=== PATIENT | female | born 1960 | race Caucasian/White ===

== ENCOUNTER 2016-12-09 20:44 | Inpatient (IN) ==
[2016-12-09] MEDS ORDERED: 0.9 % Sodium Chloride 1,000 ML IVC ONE (20:47)
[2016-12-09] MEDS ORDERED: Vancomycin 1,500 MG in D5% in Water 250 ML IVPB ONE (20:49)
[2016-12-09] MEDS ORDERED: Clindamycin 600 MG/50 ML 600 MG/50 ML IV.SOLN IVPB ONE (20:49)
[2016-12-09] MEDS ORDERED: *HR* HYDROmorphone (PF) 1 MG/ML SYRINGE IVP ONE (20:50)
[2016-12-09 21:20] LABS: Basophils % 0.3 %; Eosinophils # 0.1 K/mcL (0.0-0.6); Eosinophils % 0.9 %; Hematocrit 35.5 % (35.3-44.9); Immature Granulocytes % 0.7 % (0-4); Lymphocytes # 1.9 K/mcL (0.6-4.6); Lymphocytes % 14.4 %; Mean Corpuscular HGB Conc 33.8 g/dL (31.6-35.5); Mean Corpuscular Hemoglobin 29.9 pg (28.0-33.3); Mean Corpuscular Volume 88.3 fL (83.0-100.0); Mean Platelet Volume 10.3 fL (9.4-12.4); Monocytes # 0.8 K/mcL (0.0-1.3); Monocytes % 5.9 %; Neutrophils # 10.4 K/mcL (1.6-8.9); Platelet Count 325 K/mcL (140-400); Red Blood Count 4.02 M/mcL (3.82-4.97); Red Cell Distribution Width 12.1 % (11.5-14.5); Segmented Neutrophils % 77.8 %
[2016-12-09 21:25] LABS: INR 1.1; Prothrombin Time 12.1 Seconds (9.4-12.1)
[2016-12-09 21:28] LABS: Activated Partial Thrombo Time 32.2 Seconds (26.0-36.0)
[2016-12-09 21:35] LABS: Alanine Aminotransferase 30 Units/L (0-55); Albumin 3.1 g/dL (3.5-5.0); Albumin/Globulin Ratio 0.6 (1.1-2.2); Alkaline Phosphatase 66 Units/L (38-126); Aspartate Amino Transferase 21 Units/L (5-34); BUN/Creatinine Ratio 18 (6-26); Bilirubin,Direct 0.2 mg/dL (0.0-0.5); Bilirubin,Indirect 0.1 mg/dL (0.0-1.2); Bilirubin,Total 0.3 mg/dL (0.2-1.2); Blood Urea Nitrogen 16 mg/dL (7-20); Calcium 9.8 mg/dL (8.6-10.8); Carbon Dioxide 23 mEq/L (19-29); Chloride 100 mEq/L (98-109); Globulin 5.1 g/dL (2.4-3.5); Glucose 195 mg/dL (70-99); Osmolality,Calculated 289 (280-300); Potassium 3.3 mEq/L (3.5-4.5); Sodium 136 mEq/L (136-145); Total Protein 8.2 g/dL (6.0-8.3); eGFR For African Americans > 60 (> 60); eGFR For Non-African Americans > 60 (> 60)
--- NOTE | 2016-12-09 23:31 | Emergency Department Note ---
Disposition Clinical Impression: Cellulitis of gluteal region Disposition: Admitted As Inpatient Referrals: Aiyana Garay MD [Primary Care Provider] - Forms: Work/School Release, ED Satisfaction Letter General Adult HPI - General Chief complaint: ED General Medical Stated complaint: rectal abcess Source: patient, EMS Limitations: no limitations Nursing Notes Reviewed: Yes Vital Signs Reviewed: Yes - History of Present Illness HPI Narrative: 56-year-old female with a history of diabetes who presents with concern for gluteal cleft cellulitis. She was actually seen at a different [place] facility yesterday and was placed on antibiotics. Today her pain is worsened, symptoms worsen, she is concerned about abscess formation. She has had abscess in the past. She admits her blood glucose has been running normal. She is now having severe pain, unable to move because of her guteal cleft pain. Paramedics did report that she was mildly hypotensive on their arrival however this is resolved by her presentation in the emergency department. Pain Scale: 8 - Related Data Home Medications Medication Instructions Recorded Confirmed Aspirin [Lo-Dose Aspirin EC] 81 mg PO DAILY 12/08/16 12/08/16 Canagliflozin [Invokana] 300 mg PO DAILY 12/08/16 12/08/16 Docusate [Colace] 100 mg PO DAILY 12/08/16 12/08/16 Ferrous Sulfate [Iron] 325 mg PO BID 12/08/16 12/08/16 Furosemide [Lasix] 20 mg PO DAILY 12/08/16 12/08/16 Gemfibrozil [Lopid] 600 mg PO BIDWM 12/08/16 12/08/16 Glimepiride [Amaryl] 4 mg PO BID 12/08/16 12/08/16 HydrOXYzine Pamoate [Vistaril] 10 mg PO BID PRN 12/08/16 12/08/16 Levothyroxine [Synthroid] 50 mcg PO 0630 12/08/16 12/08/16 Lisinopril [Zestril] 10 mg PO DAILY 12/08/16 12/08/16 Loratadine [Allergy Relief] 10 mg PO DAILY 12/08/16 12/08/16 Meloxicam 15 mg PO DAILY 12/08/16 12/08/16 Metformin HCl [Fortamet] 1,000 mg PO BID 12/08/16 12/08/16 Metoprolol [Lopressor] 25 mg PO BID 12/08/16 12/08/16 Trazodone HCl 100 mg PO QPM 12/08/16 12/08/16 Previous Rx's Medication Instructions Recorded Ciprofloxacin [Cipro] 500 mg PO BID #20 tablet 12/08/16 Clindamycin HCl 300 mg PO QID #80 capsule 12/08/16 HYDROcodone/Acet 5/325 mg [[place] 1 tab PO Q6H PRN #14 tab 12/08/16 5-325 mg] Polyethylene Glycol 3350 [MiraLAX 1 scoop PO DAILY #510 gm 12/08/16 Powder Bulk 17.9 Oz] Allergies Allergy/AdvReac Type Severity Reaction Status Date / Time Penicillins AdvReac Hives Verified 12/08/16 00:40 sulfamethoxazole AdvReac See Verified 12/08/16 00:40 [From Bactrim] Comments terbinafine [From Lamisil] AdvReac Anaphylaxis Verified 12/08/16 00:40 trimethoprim [From Bactrim] AdvReac See Verified 12/08/16 00:40 Comments All systems ED: reviewed and negative except as stated. Past Medical History - Past Medical History Medical history: Reports: diabetes, GERD, hyperlipidemia, hypertension, thyroid disease, other Surgical history: Reports: cholecystectomy, colostomy (With reversal), herniorrhaphy Psychiatric history: Reports: anxiety - Social History Smoking Status: Never smoker Smokeless Tobacco Status: Yes Alcohol use: Reports: none Drug use: Reports: none Physical Exam Pupils are equal round reactive to light extraocular muscle movements are normal Trachea is midline TMs are clear bilaterally Cardiovascular exam shows regular rate and rhythm Pulmonary exam is without rales rhonchi or wheezing Abdominal examination is without peritonitis, guarding or rebound tenderness exam there is cellulitis of the gluteal cleft with 3 areas of induration in the perianal region. Neurologic exam is without focal neurological deficit Skin is pink, pale, dry Psychiatric exam shows normal affect normal interaction Extremities are well perfused - General Limitations: no limitations General appearance: alert, in no apparent distress Course Vital Signs Temperature 98.6 F 12/09/16 20:45 Pulse Rate 88 12/09/16 20:45 Respiratory Rate 18 12/09/16 20:45 Blood Pressure 121/68 12/09/16 20:45 O2 Sat by Pulse Oximetry 97 12/09/16 20:45 Temperature 98.6 F 12/09/16 20:45 Pulse Rate 90 12/09/16 23:00 Respiratory Rate 16 12/09/16 23:00 Blood Pressure 110/67 12/09/16 23:00 O2 Sat by Pulse Oximetry 99 12/09/16 23:00 Oxygen Delivery Oxygen Delivery Nasal Cannula Medical Decision Making - MDM Narrative Medical decision making narrative: 56-year-old female who has gluteal cellulitis. She has a penicillin allergy. She has mild lactic acidosis. Given that this is the second emergency department visit, she is having worsening pain there is possibility of early abscess formation. I did repeat a CAT scan to rule out abscess and there is no evidence of abscess at this time. I would proceed with admission at this point given failed outpatient antibiotic therapy, lactic acidosis, diabetes, comorbidities which could exacerbate cellulitis. Additionally should this develop into a full abscess that she could require surgical management. Discussed case with hospitalist team. - Lab Data Result diagrams: 12/09/16 21:12 12/09/16 21:12 Lab Results 12/09/16 12/09/16 12/09/16 Range/Units 21:12 21:12 21:12 WBC 13.4 H (4.3-11.1) K/mcL RBC 4.02 (3.82-4.97) M/mcL Hgb 12.0 D (11.5-15.4) g/dL Hct 35.5 (35.3-44.9) % MCV 88.3 (83.0-100.0) fL MCH 29.9 (28.0-33.3) pg MCHC 33.8 (31.6-35.5) g/dL RDW 12.1 (11.5-14.5) % Plt Count 325 (140-400) K/mcL MPV 10.3 (9.4-12.4) fL Immature Gran % 0.7 (0-4) % Seg Neutrophils % 77.8 % Lymphocytes % 14.4 % Monocytes % 5.9 % Eosinophils % 0.9 % Basophils % 0.3 % Neutrophils # 10.4 H (1.6-8.9) K/mcL Lymphocytes # 1.9 (0.6-4.6) K/mcL Monocytes # 0.8 (0.0-1.3) K/mcL Eosinophils # 0.1 (0.0-0.6) K/mcL Basophils # 0.0 (0.0-0.2) K/mcL PT 12.1 (9.4-12.1) Seconds INR 1.1 APTT 32.2 (26.0-36.0) Seconds Sodium 136 (136-145) mEq/L Potassium 3.3 L (3.5-4.5) mEq/L Chloride 100 (98-109) mEq/L Carbon Dioxide 23 (19-29) mEq/L BUN 16 (7-20) mg/dL Creatinine 0.87 (0.57-1.11) mg/dL Est GFR ( Amer) > 60 (> 60) Est GFR (Non-Af Amer) > 60 (> 60) BUN/Creatinine Ratio 18 (6-26) Glucose 195 H (70-99) mg/dL Calculated Osmolality 289 (280-300) Lactic Acid (0.5-2.2) mmol/L Calcium 9.8 (8.6-10.8) mg/dL Total Bilirubin 0.3 (0.2-1.2) mg/dL Direct Bilirubin 0.2 (0.0-0.5) mg/dL Indirect Bilirubin 0.1 (0.0-1.2) mg/dL AST 21 (5-34) Units/L ALT 30 (0-55) Units/L Alkaline Phosphatase 66 (38-126) Units/L Troponin I (0-0.03) ng/mL Serum Total Protein 8.2 (6.0-8.3) g/dL Albumin 3.1 L (3.5-5.0) g/dL Globulin 5.1 H (2.4-3.5) g/dL Albumin/Globulin Ratio 0.6 L (1.1-2.2) 12/09/16 12/09/16 12/09/16 Range/Units 21:12 21:12 22:47 WBC (4.3-11.1) K/mcL RBC (3.82-4.97) M/mcL Hgb (11.5-15.4) g/dL Hct (35.3-44.9) % MCV (83.0-100.0) fL MCH (28.0-33.3) pg MCHC (31.6-35.5) g/dL RDW (11.5-14.5) % Plt Count (140-400) K/mcL MPV (9.4-12.4) fL Immature Gran % (0-4) % Seg Neutrophils % % Lymphocytes % % Monocytes % % Eosinophils % % Basophils % % Neutrophils # (1.6-8.9) K/mcL Lymphocytes # (0.6-4.6) K/mcL Monocytes # (0.0-1.3) K/mcL Eosinophils # (0.0-0.6) K/mcL Basophils # (0.0-0.2) K/mcL PT (9.4-12.1) Seconds INR APTT (26.0-36.0) Seconds Sodium (136-145) mEq/L Potassium (3.5-4.5) mEq/L Chloride (98-109) mEq/L Carbon Dioxide (19-29) mEq/L BUN (7-20) mg/dL Creatinine (0.57-1.11) mg/dL Est GFR ( Amer) (> 60) Est GFR (Non-Af Amer) (> 60) BUN/Creatinine Ratio (6-26) Glucose (70-99) mg/dL Calculated Osmolality (280-300) Lactic Acid 2.6 H 1.4 (0.5-2.2) mmol/L Calcium (8.6-10.8) mg/dL Total Bilirubin (0.2-1.2) mg/dL Direct Bilirubin (0.0-0.5) mg/dL Indirect Bilirubin (0.0-1.2) mg/dL AST (5-34) Units/L ALT (0-55) Units/L Alkaline Phosphatase (38-126) Units/L Troponin I 0.00 (0-0.03) ng/mL Serum Total Protein (6.0-8.3) g/dL Albumin (3.5-5.0) g/dL Globulin (2.4-3.5) g/dL Albumin/Globulin Ratio (1.1-2.2)
[2016-12-09] MEDS ORDERED: *HR* OxyCODONE/APAP 5/325 TABLET PO ONE (23:45)
[2016-12-10 00:27] LABS: Bilirubin,Urine Negative (Negative); Blood,Urine Negative (Negative); Clarity,Urine Clear (Clear); Color,Urine Yellow (Yellow); Glucose,Urine (UA) >=1000 mg/dL (Normal); Ketones,Urine Negative (Negative); Leukocyte Esterase,Urine Negative (Negative); Nitrite,Urine Negative (Negative); Protein,Urine Negative (Neg-Trace); Specific Gravity,Urine > 1.030 (1.010-1.025); Urobilinogen,Urine Normal (Normal)
--- NOTE | 2016-12-10 03:13 | Internal Med History&Physical ---
Date of Encounter: 12/10/16 Time of Encounter: 03:08 Assessment and Plan (1) Cellulitis of gluteal region Current visit: Yes Status: Acute Cellulitis with significant swelling and tenderness in the above-mentioned area. Continue with IV antibiotics. She has multiple allergies to medication. We will continue with vancomycin coverage of gram-positive bacteria. There is no evidence of crepitation, and no evidence of gas in the imaging study performed, no necrosis. However, in light of history of concomitant diabetes, location of infection, initial elevation of lactic acid, transient hypotension, will provide additional antibiotic coverage with Cipro and Flagyl. No evidence of abscess. Monitor Clinically. May Benefit from Drainage. (2) Diabetes Current visit: Yes Status: Acute Patient on treatment with metformin as outpatient. At this point will hold metformin and monitor fingerstick. We will provide coverage with insulin. Qualifiers: Diabetes mellitus type: type 2 Diabetes mellitus complication status: with hyperglycemia Diabetes mellitus intermediate frame tender insulin use: unspecified intermediate frame tender insulin use status Qualified Code(s): E11.65 - Type 2 diabetes mellitus with hyperglycemia Internal Medicine - H&P: HPI Chief complaint: perianal pain Admitted From: Emergency Dept Plans for Post Hospital Care: Home History of present illness: Ms. Gibson is a 56 year old female with past medical history of type 2 diabetes, hypertension, obesity, history of multiple blood clots, chronic pain, hyperlipidemia, multiple allergies to medications. Presented to our emergency department complaining of worsening pain in the perianal area, associated with tenderness. The patient states that 3 days ago she noticed some pain and tenderness in the perianal area, she seek medical attention and was started on antibiotics. Patient went to [facility], she underwent a CT scan and was told that she needed to continue with antibiotics and might even need to pursue a surgical drainage. The patient was on ciprofloxacin and clindamycin. Today her pain is worse, she is complaining of significant tenderness and swelling in the area. She is very concerned about abscess formation. Prior to the emergency department her vital signs were stable. However, according to documentation in the emergency department. On the way from home to the ER she was slightly hypotensive. Initial goal will reveal a terrific count of 13.4, hemoglobin 12, hematocrit 35.5, blood count is 325,000. Sodium 136, potassium 3.3, chloride 100, bicarbonate 23, BUN 16, creatinine 0.87, glucose 195. Patient underwent a CT of the pelvis which did not reveal any evidence of aspiration. CT demonstrated a stable subcutaneous inflammatory changes in the left gluteal fold. The patient was admitted for further management and workup. Past Med Surg Social Fam HX - Past Medical History Medical history: diabetes, GERD, hyperlipidemia, hypertension, thyroid disease, other Psychiatric history: anxiety - Past Surgical History Surgical History: cholecystectomy, colostomy, herniorrhaphy - Social History Smoking Status: Former smoker Smokeless Tobacco Status: No Alcohol use: none Drug use: none Internal Medicine - H&P: Meds Aspirin [Lo-Dose Aspirin EC] 81 mg PO DAILY 12/08/16 [History] Canagliflozin [Invokana] 300 mg PO DAILY 12/08/16 [History] Clindamycin HCl 300 mg PO QID #80 capsule 12/08/16 [Rx] Docusate [Colace] 100 mg PO DAILY 12/08/16 [History] Ferrous Sulfate [Iron] 325 mg PO BID 12/08/16 [History] Furosemide [Lasix] 20 mg PO DAILY 12/08/16 [History] Gemfibrozil [Lopid] 600 mg PO BIDWM 12/08/16 [History] Glimepiride [Amaryl] 4 mg PO BID 12/08/16 [History] HydrOXYzine Pamoate [Vistaril] 10 mg PO BID PRN 12/08/16 [History] Levothyroxine [Synthroid] 50 mcg PO 0630 12/08/16 [History] Lisinopril [Zestril] 10 mg PO DAILY 12/08/16 [History] Loratadine [Allergy Relief] 10 mg PO DAILY 12/08/16 [History] Meloxicam 15 mg PO DAILY 12/08/16 [History] Metformin HCl [Fortamet] 1,000 mg PO BID 12/08/16 [History] Metoprolol [Lopressor] 25 mg PO BID 12/08/16 [History] Trazodone HCl 100 mg PO QPM 12/08/16 [History] Escitalopram [Lexapro] 20 mg PO DAILY 12/10/16 [History] HYDROcodone/Acet 10/325 mg [[place] 10-325 mg] 1 tab PO TID 12/10/16 [History] Allergies Penicillins Adverse Reaction (Verified 12/08/16 00:40) Hives sulfamethoxazole [From Bactrim] Adverse Reaction (Verified 12/08/16 00:40) See Comments terbinafine [From Lamisil] Adverse Reaction (Verified 12/08/16 00:40) Anaphylaxis trimethoprim [From Bactrim] Adverse Reaction (Verified 12/08/16 00:40) See Comments All Systems PM: A 10-system review of systems was performed and is negative for pertinent findings except as documented above in the HPI. - Constitutional Constitutional: as per HPI, no chills, no fever(s), no night sweats - EENT Eyes: as per HPI, no change in vision, no discharge, no pain, no photophobia Ears: as per HPI, no ear discharge, no ear pain, no tinnitus Nose, mouth and throat: as per HPI, no dysphagia, no nasal discharge, no neck pain, no sore throat - Breasts Breasts: as per HPI - Cardiovascular Cardiovascular ROS IM: as per HPI, no chest pain, no diaphoresis, no dyspnea, no lightheadedness, no palpitations, no syncope - Respiratory Respiratory: as per HPI, no cough, no dyspnea, no wheezing, no excessive phlegm production - Gastrointestinal Gastrointestinal: as per HPI, no abdominal pain, no diarrhea, no hematemesis, no hematochezia, no melena, no nausea, no vomiting - Genitourinary Genitourinary: as per HPI, no change in urinary stream, no dysuria, no flank pain, no hematuria Menstruation: as per HPI - Musculoskeletal Musculoskeletal ROS IM: as per HPI, no numbness, no tingling - Integumentary Integumentary IM: as per HPI, no rash, no unusual bruising - Neurological Neurological ROS: as per HPI, no confusion, no convulsions, no focal weakness, no numbness, no tingling, no tremor(s) - Psychiatric Psychiatric: as per HPI - Endocrine Endocrine IM: as per HPI - Hematologic/Lymphatic Hematologic/Lymphatic: as per HPI, no easy bruising - Allergic/Immunologic Allergic/Immunologic: as per HPI - Constitutional Vitals: Temp Pulse Resp BP Pulse Ox 98.8 F 93 16 111/69 94 L 12/10/16 02:51 12/10/16 02:51 12/10/16 02:51 12/10/16 02:51 12/10/16 02:51 General appearance: Present: cooperative, no acute distress, obese - Head Head exam: Present: atraumatic, normocephalic - Eye Eye exam: Present: PERRL, conjuntiva pink, sclera anicteric Pupils: Present: PERRL - Neck Neck exam general surgery: Present: supple, trachea midline. Absent: lymphadenopathy - Respiratory Respiratory exam: Present: CTAB. Absent: accessory muscle use, rales, rhonchi, wheezes - Cardiovascular Cardiovascular exam: Present: RRR, +S1, +S2. Absent: diastolic murmur, gallop, rubs, systolic murmur - GI/Abdominal GI/Abdominal exam: Present: normal bowel sounds, soft, no peritoneal signs. Absent: distended, tenderness - Extremities Exam Extremities exam: Present: warm, radial pulses palpable and symetrical. Absent : calf tenderness, cyanotic, pedal edema - Neurological Exam Neurological exam: Present: CN II-XII intact, oriented X3, no focal deficits. Absent: pronater drift, facial droop, speech deficit - Skin Skin exam: Present: dry Additional comments: cellulitis of the gluteal cleft with 3 areas of induration and tenderness in the perianal region. Internal Med - H&P Results - Labs CBC & Chem 7: 12/09/16 21:12 12/09/16 21:12 Labs: Urine 12/10/16 Range/Units 00:14 Urine Color Yellow (Yellow) Urine Clarity Clear (Clear) Urine pH 6.0 (5.0-8.0) pH Units Ur Specific [place] > 1.030 H (1.010-1.025) Urine Protein Negative (Neg-Trace) mg/dL Urine Glucose (UA) >=1000 H (Normal) mg/dL
[2016-12-10] MEDS ORDERED: D5% in Water 1,000 ML IVC PRN (03:27)
[2016-12-10] MEDS ORDERED: *HR* Dextrose 50 % in Water (Syg) 50 ML SYRINGE IVP PRN (03:27)
[2016-12-10] MEDS ORDERED: Ondansetron 4 MG/2 ML VIAL IVP PRN (03:27)
[2016-12-10] MEDS ORDERED: Naloxone 0.4 MG/ML INJ IVP PRN (03:27)
[2016-12-10] MEDS ORDERED: Dextrose Gel 15 GM PO PRN ×2 (03:27)
[2016-12-10] MEDS ORDERED: Vancomycin 1,500 MG in D5% in Water 250 ML IVPB SCH (04:00)
[2016-12-10] MEDS: *HR* HYDROcodone/Acet 5/325 mg TABLET PO PRN ×4 (04:02→20:42)
[2016-12-10] MEDS: *HR* Heparin 5,000 UNIT/ML VIAL SQ SCH ×2 (06:25→15:49)
[2016-12-10] MEDS: Aspirin Enteric Coated 81 MG Tablet PO SCH (08:26)
[2016-12-10] MEDS: Furosemide 20 MG TABLET PO SCH (08:26)
[2016-12-10] MEDS: MetroNIDAZOLE 500 MG/100 ML 500 MG/100 ML BAG IVPB SCH ×3 (08:26→23:40)
[2016-12-10] MEDS: Insulin LISPRO 300 UNITS/3 ML VIAL SQ SCH ×4 (08:32→20:36)
[2016-12-10] MEDS: Vancomycin 1,500 MG in D5% in Water 250 ML IVPB SCH ×2 (10:57→21:46)
[2016-12-10] MEDS: 0.9 % Sodium Chloride 1,000 ML IVC SCH (13:09)
[2016-12-10] MEDS ORDERED: Lidocaine 1% 20 ML MDV ID ONE (14:09)
[2016-12-10] MEDS ORDERED: *HR* HYDROmorphone (PF) 1 MG/ML SYRINGE IVP STA (14:10)
[2016-12-10] MEDS ORDERED: *HR* HYDROmorphone (PF) 1 MG/ML SYRINGE ONE (14:14)
[2016-12-10] MEDS: Lidocaine 4% CREAM (LMX) 5 GM TP SCH ×2 (15:33→20:42)
--- NOTE | 2016-12-10 16:48 | General Surgery Consult Note ---
<Gareth Oliveira - Last Filed: 12/10/16 16:42> Date of Encounter: 12/10/16 Time of Encounter: 12:00 Assessment and Plan (1) Perianal abscess Current Visit: Yes Status: Acute Pt. with one 5x6cm carley-anal abscess and one 1x2cm carley-anal abscess She has had carley-anal abscesses before. Bedside I&D was performed. Abscesses were purulent. Pt. had immediate pain relief Wound cultures obtained and sent to lab [facility] History of Present Illness Consult date: 12/10/16 Reason for consult: other (carley-anal abscess) Requesting physician: Arti Vincent History of present illness: Mrs. Gibson is a 56 yo F who presented to [facility] ED for rectal pain. She was seen two days prior for the same issue and was given clindamycin and ciproflaxacin. She returned today for worsening pain in the rectal region. There is a large, superficial, 4x5cm red, swollen, edematous lesion in the left carley-anal region. There is also a small [id number] lesion just inferior to the larger one. They are both exquisitely tender. There is no draining from the abscesses. She denies fever, cp, sob, light-headedness, nausea, vomiting, diarrhea, constipation. Past Med Surg Social Fam HX - Past Medical History Medical history: diabetes, GERD, hyperlipidemia, hypertension, thyroid disease, other Psychiatric history: anxiety - Past Surgical History Surgical History: cholecystectomy, colostomy, herniorrhaphy - Social History Smoking Status: Former smoker Smokeless Tobacco Status: No Alcohol use: none Drug use: none Medications and Allergies Aspirin [Lo-Dose Aspirin EC] 81 mg PO DAILY 12/08/16 [History] Canagliflozin [Invokana] 300 mg PO DAILY 12/08/16 [History] Clindamycin HCl 300 mg PO QID #80 capsule 12/08/16 [Rx] Docusate [Colace] 100 mg PO DAILY 12/08/16 [History] Ferrous Sulfate [Iron] 325 mg PO BID 12/08/16 [History] Furosemide [Lasix] 20 mg PO DAILY 12/08/16 [History] Gemfibrozil [Lopid] 600 mg PO BIDWM 12/08/16 [History] Glimepiride [Amaryl] 4 mg PO BID 12/08/16 [History] HydrOXYzine Pamoate [Vistaril] 10 mg PO BID PRN 12/08/16 [History] Levothyroxine [Synthroid] 50 mcg PO DAILY 12/08/16 [History] Lisinopril [Zestril] 10 mg PO DAILY 12/08/16 [History] Loratadine [Allergy Relief] 10 mg PO DAILY 12/08/16 [History] Meloxicam 15 mg PO DAILY 12/08/16 [History] Metformin HCl [Fortamet] 1,000 mg PO BID 12/08/16 [History] Metoprolol [Lopressor] 25 mg PO BID 12/08/16 [History] Trazodone HCl 100 mg PO QPM 12/08/16 [History] Escitalopram [Lexapro] 20 mg PO DAILY 12/10/16 [History] HYDROcodone/Acet 10/325 mg [[place] 10-325 mg] 1 tab PO TID 12/10/16 [History] Allergies Penicillins Adverse Reaction (Verified 12/08/16 00:40) Hives sulfamethoxazole [From Bactrim] Adverse Reaction (Verified 12/08/16 00:40) See Comments terbinafine [From Lamisil] Adverse Reaction (Verified 12/08/16 00:40) Anaphylaxis trimethoprim [From Bactrim] Adverse Reaction (Verified 12/08/16 00:40) See Comments Review of Systems All systems PM: A 10-system review of systems was performed and is negative for pertinent findings except as documented above in the HPI. - Constitutional as per HPI - Cardiovascular as per HPI - Respiratory as per HPI - Integumentary furuncle - Neurological as per HPI General Surgery Exam Initial Vital Signs Temp Pulse Resp BP Pulse Ox 98.6 F 88 18 121/68 97 12/09/16 20:45 12/09/16 20:45 12/09/16 20:45 12/09/16 20:45 12/09/16 20:45 - General physical appearance well developed, well nourished, no distress - Neck trachea midline - Respiratory normal expansion, clear to auscultation - Cardiovascular Cardiovascular exam: Present: RRR - Abdomen Abdomen general surgery: Present: bowel sounds present, soft, non tender - Rectum Rectum: Present: no hemorrhoids. Absent: no masses (carley-anal abscess) - Neurologic Present: CN 2-12 grossly intact - Psychiatric Psychiatric general surgery: Present: A&Ox3 Exam Initial Vital Signs Temp Pulse Resp BP Pulse Ox 98.6 F 88 18 121/68 97 12/09/16 20:45 12/09/16 20:45 12/09/16 20:45 12/09/16 20:45 12/09/16 20:45 Results - Labs 12/09/16 21:12 12/09/16 21:12 Abnormal lab results WBC 13.4 K/mcL (4.3-11.1) H 12/09/16 21:12 Neutrophils # 10.4 K/mcL (1.6-8.9) H 12/09/16 21:12 Potassium 3.3 mEq/L (3.5-4.5) L 12/09/16 21:12 Glucose 195 mg/dL (70-99) H 12/09/16 21:12 POC Glucose 150 (58-89) H 12/10/16 16:06 Albumin 3.1 g/dL (3.5-5.0) L 12/09/16 21:12 Globulin 5.1 g/dL (2.4-3.5) H 12/09/16 21:12 Albumin/Globulin Ratio 0.6 (1.1-2.2) L 12/09/16 21:12 Ur Specific [place] > 1.030 (1.010-1.025) H 12/10/16 00:14 Urine Glucose (UA) >=1000 mg/dL (Normal) H 12/10/16 00:14 All other labs normal. Consult Discharge Plan - Plan Referrals: Aiyana Garay MD [Primary Care Provider] - <Vicente Tolbert - Last Filed: 12/11/16 05:42> Date of Encounter: 12/10/16 Review of Systems All systems PM: A 10-system review of systems was performed and is negative for pertinent findings except as documented above in the HPI. General Surgery Exam Initial Vital Signs Temp Pulse Resp BP Pulse Ox 98.6 F 88 18 121/68 97 12/09/16 20:45 12/09/16 20:45 12/09/16 20:45 12/09/16 20:45 12/09/16 20:45 Exam Initial Vital Signs Temp Pulse Resp BP Pulse Ox 98.6 F 88 18 121/68 97 12/09/16 20:45 12/09/16 20:45 12/09/16 20:45 12/09/16 20:45 12/09/16 20:45 Results - Labs 12/11/16 04:42 12/11/16 04:42 Abnormal lab results RBC 3.68 M/mcL (3.82-4.97) L 12/11/16 04:42 Hgb 11.1 g/dL (11.5-15.4) L 12/11/16 04:42 Hct 32.9 % (35.3-44.9) L 12/11/16 04:42 Potassium 3.2 mEq/L (3.5-4.5) L 12/11/16 04:42 Glucose 119 mg/dL (70-99) H 12/11/16 04:42 POC Glucose 143 (58-89) H 12/10/16 20:05 Hemoglobin A1c 6.5 % (-5.6) H 12/11/16 04:42 Albumin 3.1 g/dL (3.5-5.0) L 12/09/16 21:12 Globulin 5.1 g/dL (2.4-3.5) H 12/09/16 21:12 Albumin/Globulin Ratio 0.6 (1.1-2.2) L 12/09/16 21:12 Ur Specific [place] > 1.030 (1.010-1.025) H 12/10/16 00:14 Urine Glucose (UA) >=1000 mg/dL (Normal) H 12/10/16 00:14 Diabetes panel 12/11/16 12/11/16 Range/Units 04:42 04:42 Sodium 140 (136-145) mEq/L Potassium 3.2 L (3.5-4.5) mEq/L Chloride 106 (98-109) mEq/L Carbon Dioxide 24 (19-29) mEq/L BUN 9 (7-20) mg/dL Creatinine 0.57 (0.57-1.11) mg/dL Glucose 119 H (70-99) mg/dL Hemoglobin A1c 6.5 H ( - 5.6) % Calcium 8.8 (8.6-10.8) mg/dL Calcium panel 12/11/16 Range/Units 04:42 Calcium 8.8 (8.6-10.8) mg/dL Pituitary panel 12/11/16 Range/Units 04:42 Sodium 140 (136-145) mEq/L Potassium 3.2 L (3.5-4.5) mEq/L Chloride 106 (98-109) mEq/L Carbon Dioxide 24 (19-29) mEq/L BUN 9 (7-20) mg/dL Creatinine 0.57 (0.57-1.11) mg/dL Glucose 119 H (70-99) mg/dL Calcium 8.8 (8.6-10.8) mg/dL Adrenal panel 12/11/16 Range/Units 04:42 Sodium 140 (136-145) mEq/L Potassium 3.2 L (3.5-4.5) mEq/L Chloride 106 (98-109) mEq/L Carbon Dioxide 24 (19-29) mEq/L BUN 9 (7-20) mg/dL Creatinine 0.57 (0.57-1.11) mg/dL Glucose 119 H (70-99) mg/dL Calcium 8.8 (8.6-10.8) mg/dL All other labs normal. - Attending Attestation I examined this patient and my medical decision-making was reviewed with the CLAIMS ACCOUNT MANAGER/PA/Advanced Practice Nurse/Resident Physician. I agree with the documented findings, disposition and treatment plan as described except to the extent set forth below. I reviewed the above physical examination and evaluation and agree with the above assessment. Patient has had a several day history of perianal pain and swelling with no drainage. Presented with pain and swelling in the left perianal abscess region to the emergency room and was initially treated with oral antibiotics. Due to failure of treatment she presented once again to the hospital and was admitted. Positive pain to palpation on the left side near the perirenal space from the 12 o'clock position to the 6 o'clock position with some mild erythema. CT scan confirms the physical exam and findings of a perianal abscess. We will perform a bedside incision and drainage procedure shortly.
[2016-12-10] MEDS: Acetaminophen 325 MG TABLET PO PRN (20:41)
[2016-12-10] MEDS: traZODone 50 MG TABLET PO SCH (20:42)
[2016-12-11] MEDS: *HR* HYDROcodone/Acet 5/325 mg TABLET PO PRN ×3 (04:59→20:28)
[2016-12-11] MEDS: *HR* Heparin 5,000 UNIT/ML VIAL SQ SCH ×2 (05:02→17:29)
[2016-12-11 05:19] LABS: Basophils # 0.1 K/mcL (0.0-0.2); Basophils % 0.5 %; Eosinophils # 0.2 K/mcL (0.0-0.6); Eosinophils % 1.7 %; Hematocrit 32.9 % (35.3-44.9); Hemoglobin 11.1 g/dL (11.5-15.4); Immature Granulocytes % 0.5 % (0-4); Lymphocytes # 2.2 K/mcL (0.6-4.6); Mean Corpuscular HGB Conc 33.7 g/dL (31.6-35.5); Mean Corpuscular Hemoglobin 30.2 pg (28.0-33.3); Mean Corpuscular Volume 89.4 fL (83.0-100.0); Mean Platelet Volume 10.5 fL (9.4-12.4); Monocytes # 0.8 K/mcL (0.0-1.3); Monocytes % 7.4 %; Neutrophils # 7.8 K/mcL (1.6-8.9); Platelet Count 293 K/mcL (140-400); Red Blood Count 3.68 M/mcL (3.82-4.97); Red Cell Distribution Width 12.1 % (11.5-14.5); Segmented Neutrophils % 69.9 %
[2016-12-11 05:27] LABS: Hemoglobin A1C 6.5 %
[2016-12-11 05:39] LABS: BUN/Creatinine Ratio 16 (6-26); Blood Urea Nitrogen 9 mg/dL (7-20); Calcium 8.8 mg/dL (8.6-10.8); Carbon Dioxide 24 mEq/L (19-29); Chloride 106 mEq/L (98-109); Glucose 119 mg/dL (70-99); Osmolality,Calculated 290 (280-300); Potassium 3.2 mEq/L (3.5-4.5); Sodium 140 mEq/L (136-145); eGFR For African Americans > 60 (> 60); eGFR For Non-African Americans > 60 (> 60)
--- NOTE | 2016-12-11 05:44 | Event Note ---
Date of Encounter: 12/10/16 Time of Encounter: 13:00 After properly delivering the patient, the patient was placed on the left lateral side decubitus position in the left perianal region was prepped and draped in normal sterile fashion. I was performed and 1% lidocaine with epinephrine was used to anesthetize the epidermal and dermal layer overlying to fluctuant masses consistent with a perianal abscess. An 11 blade scalpel was used to make an incision approximately 2 cm over the larger abscess and 1 cm over the smaller. Prior to making the incision a 19 gauge needle was used to withdraw approximate 5 mL of abscess which was submitted for culture. Palpation of the region allow for expression of exudate and each opening was packed with quarter-inch packing. The area was covered with 4 x 4 gauze.
[2016-12-11] MEDS: 0.9 % Sodium Chloride 1,000 ML IVC SCH ×2 (06:50→16:40)
[2016-12-11] MEDS: Insulin LISPRO 300 UNITS/3 ML VIAL SQ SCH ×4 (07:51→21:20)
[2016-12-11] MEDS: MetroNIDAZOLE 500 MG/100 ML 500 MG/100 ML BAG IVPB SCH ×3 (07:52→23:45)
[2016-12-11] MEDS: Aspirin Enteric Coated 81 MG Tablet PO SCH (07:53)
[2016-12-11] MEDS: Furosemide 20 MG TABLET PO SCH (07:53)
[2016-12-11] MEDS: Lidocaine 4% CREAM (LMX) 5 GM TP SCH ×3 (07:53→20:29)
[2016-12-11] MEDS: Vancomycin 1,500 MG in D5% in Water 250 ML IVPB SCH (09:52)
--- NOTE | 2016-12-11 12:26 | General Surgery Progress Note ---
Date of Encounter: 12/11/16 Time of Encounter: 12:15 - Assessment and Plan (1) Perianal abscess Current Visit: Yes Status: Acute S/P drainage of perirectal abscess 12/10/[address] Tolbert Continue packing daily for at least the next 5-7 days (may need home health as outpatient) IV antibiotics- cipro, flagyl, vanc Supportive care/pain control Will continue to follow and assess progress Will need outpatient follow-up with surgery office at discharge- 7-10 days Subjective Patient reports: feels better, still having pain, pain is less, tolerating a regular diet, flatus, no bowel movement (for the past 4 days), afebrile, other ( Patient reports difficulty with emptying her baldder, states that she has to stand up to void) Objective Vital Signs - Last 8 Hours Temp Pulse Resp BP Pulse Ox 12/11/16 10:05 98.5 F 98 16 106/66 95 Intake and Output 12/10/16 12/11/16 12/11/16 23:59 07:59 15:59 Intake Total 2250 / 2250 800 / 800 500 / 500 Output Total 1999 / 1999 500 / 500 0 / 0 Balance 250 / 250 300 / 300 500 / 500 Intake: IV Fluids 1300 / 1300 800 / 800 500 / 500 0.9 % Sodium Chloride 1, 500 / 500 500 / 500 150 / 150 000 ML @ 100 mls/hr IVC . Q10H [facility] Rx#:[id number] Cipro 400 MG/200 ML 400 200 / 200 200 / 200 mg In 200 ml @ 200 mls/hr IVPB Q12HR [facility] Rx#: [id number] Flagyl 500 MG/100 ML 500 100 / 100 100 / 100 100 / 100 mg In 100 ml @ 100 mls/hr IVPB Q8HR [facility] Rx#: [id number] Vancocin 1,500 MG In 500 / 500 250 / 250 Dextrose 5% 250 ML @ 166. 667 mls/hr IVPB Q12H R[facility] Rx#:[id number] Oral 950 / 950 Output: Urine 1999 / 1999 500 / 500 0 / 0 Other: Meal Dinner Breakfast Percent of Meal Consumed 100% 100% Weight 100.1 kg Blood Glucose* 143 180 199 Patient Weight 12/11/16 23:59 Weight 100.1 kg - General physical appearance well developed, well nourished, no distress - Eyes normal ocular movement - ENT normal mucosa, atraumatic, normocephalic - Neck Neck exam: trachea midline - Respiratory normal expansion, normal respiratory effort, clear to auscultation - Cardiovascular Cardiovascular exam: Present: RRR - Abdomen Abdomen: Present: bowel sounds present, soft, non tender, surgical scars ( muliple healed) Hernia: incarcerated (multiple incisional) - Neurologic CN 2-12 grossly intact - Musculoskeletal normal gait, normal posture - Psychiatric oriented to time, oriented to person, oriented to place, speech is normal, memory intact - Labs 12/11/16 04:42 12/11/16 04:42 Diabetes panel 12/11/16 12/11/16 Range/Units 04:42 04:42 Sodium 140 (136-145) mEq/L Potassium 3.2 L (3.5-4.5) mEq/L Chloride 106 (98-109) mEq/L Carbon Dioxide 24 (19-29) mEq/L BUN 9 (7-20) mg/dL Creatinine 0.57 (0.57-1.11) mg/dL Glucose 119 H (70-99) mg/dL Hemoglobin A1c 6.5 H ( - 5.6) % Calcium 8.8 (8.6-10.8) mg/dL Calcium panel 12/11/16 Range/Units 04:42 Calcium 8.8 (8.6-10.8) mg/dL Pituitary panel 12/11/16 Range/Units 04:42 Sodium 140 (136-145) mEq/L Potassium 3.2 L (3.5-4.5) mEq/L Chloride 106 (98-109) mEq/L Carbon Dioxide 24 (19-29) mEq/L BUN 9 (7-20) mg/dL Creatinine 0.57 (0.57-1.11) mg/dL Glucose 119 H (70-99) mg/dL Calcium 8.8 (8.6-10.8) mg/dL Adrenal panel 12/11/16 Range/Units 04:42 Sodium 140 (136-145) mEq/L Potassium 3.2 L (3.5-4.5) mEq/L Chloride 106 (98-109) mEq/L Carbon Dioxide 24 (19-29) mEq/L BUN 9 (7-20) mg/dL Creatinine 0.57 (0.57-1.11) mg/dL Glucose 119 H (70-99) mg/dL Calcium 8.8 (8.6-10.8) mg/dL Consult Discharge Plan - Plan Referrals: Aiyana Garay MD [Primary Care Provider] - - Attending Attestation I examined this patient and my medical decision-making was reviewed with the CUSTOMER SECURITY CLERK/PA/Advanced Practice Nurse/Resident Physician. I agree with the documented findings, disposition and treatment plan as described except to the extent set forth below.
[2016-12-11] MEDS: traZODone 50 MG TABLET PO SCH (17:29)
--- NOTE | 2016-12-11 17:51 | Internal Med Progress Note ---
Date of Encounter: 12/11/16 Time of Encounter: 17:49 - Assessment and plan (1) Essential hypertension Current Visit: Yes Status: Acute (2) Obesity (BMI 30.0-34.9) Current Visit: Yes Status: Acute (3) Perianal abscess Current Visit: Yes Status: Acute (4) Cellulitis of gluteal region Current Visit: Yes Status: Acute (5) Diabetes Current Visit: Yes Status: Acute Qualifiers: Diabetes mellitus type: type 2 Diabetes mellitus complication status: with hyperglycemia Diabetes mellitus recorder helper seismograph insulin use: unspecified recorder helper seismograph insulin use status Qualified Code(s): E11.65 - Type 2 diabetes mellitus with hyperglycemia - Time Spent With Patient 25 - 35 minutes - Subjective Interval history: Patient seen and examined at bedside. Reports that perianal pain has improved post I&D. Afebrile. Denies any other complaints - Constitutional Vitals: Temp Pulse Resp BP Pulse Ox 97.8 F 92 14 113/67 94 L 12/11/16 15:01 12/11/16 15:01 12/11/16 15:01 12/11/16 15:01 12/11/16 15:01 General appearance: Present: cooperative, no acute distress, obese - Head Head exam: Present: atraumatic, normocephalic - Eye Eye exam: Present: PERRL, conjuntiva pink, sclera anicteric Pupils: Present: PERRL - Neck Neck exam general surgery: Present: supple, trachea midline. Absent: lymphadenopathy - Respiratory Respiratory exam: Present: CTAB. Absent: accessory muscle use, rales, rhonchi, wheezes - Cardiovascular Cardiovascular exam: Present: RRR, +S1, +S2. Absent: diastolic murmur, gallop, rubs, systolic murmur - GI/Abdominal GI/Abdominal exam: Present: normal bowel sounds, soft, no peritoneal signs. Absent: distended, tenderness - Rectal Rectal exam: Present: tenderness (swelling perianal area s/p I&D packed ) - Extremities Exam Extremities exam: Present: warm, radial pulses palpable and symetrical. Absent : calf tenderness, cyanotic, pedal edema - Neurological Exam Neurological exam: Present: CN II-XII intact, oriented X3, no focal deficits. Absent: pronater drift, facial droop, speech deficit - Skin Skin exam: Present: dry, intact Internal Medicine: Result - Labs CBC & Chem 7: 03/27/17 04:42 12/11/16 04:42 Labs: Short CBC 12/11/16 Range/Units 04:42 WBC 11.1 (4.3-11.1) K/mcL Hgb 11.1 L (11.5-15.4) g/dL Hct 32.9 L (35.3-44.9) % Plt Count 293 (140-400) K/mcL Neutrophils # 7.8 (1.6-8.9) K/mcL BMP 12/11/16 04:42 Sodium 140 Potassium 3.2 L Chloride 106 Carbon Dioxide 24 BUN 9 Creatinine 0.57 Glucose 119 H Calcium 8.8 - ABG Interpretation ABG results: PT/INR, D-dimer PT 12.1 Seconds (9.4-12.1) 12/09/16 21:12 Consult Discharge Plan - Plan Referrals: Aiyana Garay MD [Primary Care Provider] -
[2016-12-11] MEDS: Acetaminophen 325 MG TABLET PO PRN (20:28)
[2016-12-11] MEDS: Vancomycin 1,750 MG in D5% in Water 500 ML IVPB SCH (20:34)
[2016-12-12] MEDS: 0.9 % Sodium Chloride 1,000 ML IVC SCH ×2 (04:47→22:05)
[2016-12-12] MEDS: *HR* Heparin 5,000 UNIT/ML VIAL SQ SCH ×2 (04:52→17:20)
[2016-12-12] MEDS: *HR* HYDROcodone/Acet 5/325 mg TABLET PO PRN ×3 (04:52→17:19)
[2016-12-12 05:19] LABS: Basophils # 0.1 K/mcL (0.0-0.2); Basophils % 0.8 %; Eosinophils # 0.2 K/mcL (0.0-0.6); Eosinophils % 1.8 %; Hematocrit 35.2 % (35.3-44.9); Hemoglobin 11.8 g/dL (11.5-15.4); Immature Granulocytes % 0.6 % (0-4); Lymphocytes # 2.3 K/mcL (0.6-4.6); Lymphocytes % 26.2 %; Mean Corpuscular HGB Conc 33.5 g/dL (31.6-35.5); Mean Corpuscular Hemoglobin 29.9 pg (28.0-33.3); Mean Corpuscular Volume 89.1 fL (83.0-100.0); Monocytes # 0.7 K/mcL (0.0-1.3); Monocytes % 7.4 %; Neutrophils # 5.6 K/mcL (1.6-8.9); Platelet Count 300 K/mcL (140-400); Red Blood Count 3.95 M/mcL (3.82-4.97); Red Cell Distribution Width 12.3 % (11.5-14.5); Segmented Neutrophils % 63.2 %
[2016-12-12 05:36] LABS: BUN/Creatinine Ratio 12 (6-26); Blood Urea Nitrogen 7 mg/dL (7-20); Carbon Dioxide 24 mEq/L (19-29); Chloride 106 mEq/L (98-109); Glucose 129 mg/dL (70-99); Osmolality,Calculated 290 (280-300); Potassium 3.5 mEq/L (3.5-4.5); Sodium 140 mEq/L (136-145); eGFR For African Americans > 60 (> 60); eGFR For Non-African Americans > 60 (> 60)
[2016-12-12] MEDS: Aspirin Enteric Coated 81 MG Tablet PO SCH (08:16)
[2016-12-12] MEDS: Furosemide 20 MG TABLET PO SCH (08:16)
[2016-12-12] MEDS: Insulin LISPRO 300 UNITS/3 ML VIAL SQ SCH ×4 (08:18→20:17)
[2016-12-12] MEDS: MetroNIDAZOLE 500 MG/100 ML 500 MG/100 ML BAG IVPB SCH ×2 (08:19→15:44)
[2016-12-12] MEDS: *HR* Morphine 2 MG/ML SYRINGE IVP PRN (08:20)
[2016-12-12] MEDS: Lidocaine 4% CREAM (LMX) 5 GM TP SCH ×3 (08:20→20:22)
[2016-12-12] MEDS: Vancomycin 1,750 MG in D5% in Water 500 ML IVPB SCH ×2 (09:31→22:04)
--- NOTE | 2016-12-12 12:56 | Internal Med Progress Note ---
Date of Encounter: 12/12/16 Time of Encounter: 16:51 - Assessment and plan (1) Essential hypertension Current Visit: Yes Status: Acute (2) Obesity (BMI 30.0-34.9) Current Visit: Yes Status: Acute (3) Perianal abscess Current Visit: Yes Status: Acute (4) Cellulitis of gluteal region Current Visit: Yes Status: Acute (5) Diabetes Current Visit: Yes Status: Acute Assessment and plan: 56 year old female with past medical history of type 2 diabetes, hypertension, obesity, history of multiple blood clots, chronic pain, hyperlipidemia, multiple allergies to medications,a dmitted to hospital with cellulitis of the perianal area. Patient had worsening selling the day following admisison with multiple abscess noted in the perianal area s/p I&D on 12/10. Perianal abscess: s/p drainage on 12/10/2016. On broad spectrum antibiotic coverage with Vancomycin , cipro and flagyl. Surgery following, packing changed today. c/s grew GPC. Will d/c cipro and flagyl if agreeabe with surgery. Multiple abx allergies listed. Diabetes Mellitus Type 2 with complications: On SSI. Monitor BGM Ac and HS. On Metformin, Invokana and Amaryl at home. Essential Hypertension: On lisinopril and metoprolol. Hyperlipidemia: On Gemfibrozil Hypothyroidism: continue synthroid GERD: continue PPI Obesity: To be addressed as outpt. Counseled on diet and exercise Qualifiers: Diabetes mellitus type: type 2 Diabetes mellitus complication status: with hyperglycemia Diabetes mellitus correction insulin use: unspecified ocean transportation intermediary insulin use status Qualified Code(s): E11.65 - Type 2 diabetes mellitus with hyperglycemia - Time Spent With Patient 25 - 35 minutes - Subjective Interval history: Patient seen and examined at bedside. Reports that perianal pain has improved post I&D. Afebrile. Denies any other complaints - Constitutional Vitals: Temp Pulse Resp BP Pulse Ox 97.6 F 65 16 110/64 95 12/12/16 12:00 12/12/16 12:00 12/12/16 12:00 12/12/16 12:00 12/12/16 12:00 General appearance: Present: cooperative, no acute distress, obese - Head Head exam: Present: atraumatic, normocephalic - Eye Eye exam: Present: PERRL, conjuntiva pink, sclera anicteric Pupils: Present: PERRL - Neck Neck exam general surgery: Present: supple, trachea midline. Absent: lymphadenopathy - Respiratory Respiratory exam: Present: CTAB. Absent: accessory muscle use, rales, rhonchi, wheezes - Cardiovascular Cardiovascular exam: Present: RRR, +S1, +S2. Absent: diastolic murmur, gallop, rubs, systolic murmur - GI/Abdominal GI/Abdominal exam: Present: normal bowel sounds, soft, no peritoneal signs. Absent: distended, tenderness - Extremities Exam Extremities exam: Present: warm, radial pulses palpable and symetrical. Absent : calf tenderness, cyanotic, pedal edema - Neurological Exam Neurological exam: Present: CN II-XII intact, oriented X3, no focal deficits. Absent: pronater drift, facial droop, speech deficit - Skin Skin exam: Present: dry, intact Internal Medicine: Result - Labs CBC & Chem 7: 12/12/16 05:09 12/12/16 05:09 Labs: Short CBC 12/12/16 Range/Units 05:09 WBC 8.9 (4.3-11.1) K/mcL Hgb 11.8 (11.5-15.4) g/dL Hct 35.2 L (35.3-44.9) % Plt Count 300 (140-400) K/mcL Neutrophils # 5.6 (1.6-8.9) K/mcL BMP 12/12/16 05:09 Sodium 140 Potassium 3.5 Chloride 106 Carbon Dioxide 24 BUN 7 Creatinine 0.57 Glucose 129 H Calcium 9.0 - ABG Interpretation ABG results: PT/INR, D-dimer PT 12.1 Seconds (9.4-12.1) 12/09/16 21:12 Consult Discharge Plan - Plan Referrals: Aiyana Garay MD [Primary Care Provider] -
--- NOTE | 2016-12-12 14:01 | General Surgery Progress Note ---
Date of Encounter: 12/12/16 Time of Encounter: 13:30 - Assessment and Plan (1) Perianal abscess Current Visit: Yes Status: Acute S/P drainage of perirectal abscess 12/10/[address] Tolbert Continue packing daily for at least the next 5-7 days (may need home health as outpatient) IV antibiotics- cipro, flagyl, vanc Cultures- gram positive cocci Supportive care/pain control Will continue to follow and assess progress Will need outpatient follow-up with surgery office at discharge- 7-10 days Subjective Patient reports: no new complaints, feels better, still having pain, pain is less, tolerating a regular diet, voiding w/o difficulty (improved today), flatus , bowel movement, afebrile Objective Vital Signs - Last 8 Hours Temp Pulse Resp BP Pulse Ox 12/12/16 12:00 97.6 F 65 16 110/64 95 12/12/16 08:00 98.0 F 80 18 117/66 98 12/12/16 06:59 97 Intake and Output 12/11/16 12/12/16 12/12/16 23:59 07:59 15:59 Intake Total 1410 / 1410 1380 / 1380 1380 / 1380 Output Total 2350 / 2350 600 / 600 400 / 400 Balance -940 / -940 780 / 780 980 / 980 Intake: IV Fluids 1050 / 1050 900 / 900 1000 / 1000 0.9 % Sodium Chloride 1, 250 / 250 600 / 600 400 / 400 000 ML @ 100 mls/hr IVC . Q10H [facility] Rx#:[id number] Cipro 400 MG/200 ML 400 200 / 200 200 / 200 mg In 200 ml @ 200 mls/hr IVPB Q12HR [facility] Rx#: [id number] Flagyl 500 MG/100 ML 500 100 / 100 100 / 100 100 / 100 mg In 100 ml @ 100 mls/hr IVPB Q8HR [facility] Rx#: [id number] Vancocin 1,750 MG In 500 / 500 500 / 500 Dextrose 5% 500 ML @ 333. 333 mls/hr IVPB Q12H [facility] Rx#:[id number] Oral 360 / 360 480 / 480 380 / 380 Output: Urine 2350 / 2350 600 / 600 400 / 400 Other: Meal Dinner Breakfast Percent of Meal Consumed 100% 95% Weight 101.3 kg Blood Glucose* 279 195 Patient Weight 12/12/16 23:59 Weight 101.3 kg - General physical appearance well developed, well nourished, no distress - Eyes normal ocular movement - ENT normal mucosa, atraumatic, normocephalic - Neck Neck exam: trachea midline - Respiratory normal respiratory effort, clear to auscultation - Cardiovascular Cardiovascular exam: Present: RRR - Abdomen Abdomen: Present: bowel sounds present, soft, non tender - Incision Incision: Present: open (Open and draining small amount of serousang. drainage ( packed); no surrounding erythema or induration.) - Integumentary no rash - Neurologic CN 2-12 grossly intact - Psychiatric oriented to time, oriented to person, oriented to place, speech is normal, memory intact - Labs 12/12/16 05:09 12/12/16 05:09 Diabetes panel 12/12/16 Range/Units 05:09 Sodium 140 (136-145) mEq/L Potassium 3.5 (3.5-4.5) mEq/L Chloride 106 (98-109) mEq/L Carbon Dioxide 24 (19-29) mEq/L BUN 7 (7-20) mg/dL Creatinine 0.57 (0.57-1.11) mg/dL Glucose 129 H (70-99) mg/dL Calcium 9.0 (8.6-10.8) mg/dL Calcium panel 12/12/16 Range/Units 05:09 Calcium 9.0 (8.6-10.8) mg/dL Pituitary panel 12/12/16 Range/Units 05:09 Sodium 140 (136-145) mEq/L Potassium 3.5 (3.5-4.5) mEq/L Chloride 106 (98-109) mEq/L Carbon Dioxide 24 (19-29) mEq/L BUN 7 (7-20) mg/dL Creatinine 0.57 (0.57-1.11) mg/dL Glucose 129 H (70-99) mg/dL Calcium 9.0 (8.6-10.8) mg/dL Adrenal panel 12/12/16 Range/Units 05:09 Sodium 140 (136-145) mEq/L Potassium 3.5 (3.5-4.5) mEq/L Chloride 106 (98-109) mEq/L Carbon Dioxide 24 (19-29) mEq/L BUN 7 (7-20) mg/dL Creatinine 0.57 (0.57-1.11) mg/dL Glucose 129 H (70-99) mg/dL Calcium 9.0 (8.6-10.8) mg/dL Consult Discharge Plan - Plan Referrals: Aiyana Garay MD [Primary Care Provider] - - Attending Attestation I examined this patient and my medical decision-making was reviewed with the FLASH RANGING CREWMEMBER/PA/Advanced Practice Nurse/Resident Physician. I agree with the documented findings, disposition and treatment plan as described except to the extent set forth below.
[2016-12-12] MEDS: traZODone 50 MG TABLET PO SCH (17:20)
[2016-12-12] MEDS: metroNIDAZOLE 500 MG TABLET PO SCH (23:14)
[2016-12-13] MEDS: *HR* Heparin 5,000 UNIT/ML VIAL SQ SCH (04:58)
[2016-12-13] MEDS: *HR* HYDROcodone/Acet 5/325 mg TABLET PO PRN ×2 (04:58→12:13)
[2016-12-13 05:09] LABS: Basophils # 0.1 K/mcL (0.0-0.2); Eosinophils # 0.2 K/mcL (0.0-0.6); Eosinophils % 2.8 %; Hematocrit 34.3 % (35.3-44.9); Hemoglobin 11.4 g/dL (11.5-15.4); Immature Granulocytes % 1.2 % (0-4); Lymphocytes # 1.5 K/mcL (0.6-4.6); Lymphocytes % 20.8 %; Mean Corpuscular HGB Conc 33.2 g/dL (31.6-35.5); Mean Corpuscular Hemoglobin 29.9 pg (28.0-33.3); Mean Platelet Volume 10.1 fL (9.4-12.4); Monocytes # 0.5 K/mcL (0.0-1.3); Monocytes % 7.3 %; Neutrophils # 4.9 K/mcL (1.6-8.9); Platelet Count 320 K/mcL (140-400); Red Blood Count 3.81 M/mcL (3.82-4.97); Red Cell Distribution Width 12.5 % (11.5-14.5); Segmented Neutrophils % 66.9 %
[2016-12-13 05:21] LABS: BUN/Creatinine Ratio 12 (6-26); Blood Urea Nitrogen 8 mg/dL (7-20); Carbon Dioxide 27 mEq/L (19-29); Chloride 104 mEq/L (98-109); Glucose 227 mg/dL (70-99); Osmolality,Calculated 291 (280-300); Potassium 3.7 mEq/L (3.5-4.5); Sodium 138 mEq/L (136-145); eGFR For African Americans > 60 (> 60); eGFR For Non-African Americans > 60 (> 60)
[2016-12-13] MEDS: metroNIDAZOLE 500 MG TABLET PO SCH (08:23)
[2016-12-13] MEDS: Insulin LISPRO 300 UNITS/3 ML VIAL SQ SCH ×2 (08:23→12:16)
[2016-12-13] MEDS: Aspirin Enteric Coated 81 MG Tablet PO SCH (08:23)
[2016-12-13] MEDS: Furosemide 20 MG TABLET PO SCH (08:23)
[2016-12-13] MEDS: *HR* Morphine 2 MG/ML SYRINGE IVP PRN (08:23)
[2016-12-13] MEDS: Lidocaine 4% CREAM (LMX) 5 GM TP SCH (08:29)
[2016-12-13] MEDS: Vancomycin 1,750 MG in D5% in Water 500 ML IVPB SCH (08:51)
[2016-12-13] MEDS: 0.9 % Sodium Chloride 1,000 ML IVC SCH (08:51)
[2016-12-13] MEDS ORDERED: Clindamycin 600 MG/50 ML 600 MG/50 ML IV.SOLN IVPB ONE (10:56)
[2016-12-13] MEDS ORDERED: Lactobacillus 1 EACH CAP.SPRINK PO SCH (11:00)
--- NOTE | 2016-12-13 11:05 | General Surgery Progress Note ---
Date of Encounter: 12/13/16 Time of Encounter: 11:03 - Assessment and Plan (1) Perianal abscess Status: Acute Pt. with one 5x6cm carley-anal abscess and one 1x2cm carley-anal abscess She has had carley-anal abscesses before. Bedside I&D was performed on 12/10/16 Abscesses were purulent. Pt. had immediate pain relief s/p I&D Abscess has been repacked twice since admission. Today abscess is almost completely resolved. Vastly decreased erythema/edema/tenderness. Continue packing daily for at least the next 5-7 days (may need home health as outpatient) Afebrile. No tachycardia. WBC 7.3 Wound cultures result: Streptococcus mutans. Discussed with hospitalist. Will change abx to clindamycin and discontinue vanc , cipro, and flagyl. Will need outpatient follow-up with surgery office at discharge- 7-10 days Subjective Patient reports: feels better, pain is less Narrative: Patient seen and examined. She is feeling better. Complaining of URI symptoms ( dry cough, head congestion). Abscess culture revealed strep mutans. Afebrile Objective Vital Signs - Last 8 Hours Temp Pulse Resp BP Pulse Ox 12/13/16 08:31 96 12/13/16 07:07 97.9 F 74 16 126/72 96 12/13/16 04:10 98.2 F 82 16 114/71 95 Intake and Output 12/12/16 12/13/16 12/13/16 23:59 07:59 15:59 Intake Total 840 / 840 0 / 0 1740 / 1740 Output Total 1400 / 1400 600 / 600 Balance -560 / -560 -600 / -600 1740 / 1740 Intake: IV Fluids 600 / 600 1500 / 1500 0.9 % Sodium Chloride 1, 500 / 500 1000 / 1000 000 ML @ 100 mls/hr IVC . Q10H [facility] Rx#:[id number] Flagyl 500 MG/100 ML 500 100 / 100 mg In 100 ml @ 100 mls/hr IVPB Q8HR [facility] Rx#: [id number] Vancocin 1,750 MG In 500 / 500 Dextrose 5% 500 ML @ 333. 333 mls/hr IVPB Q12H [facility] Rx#:[id number] Oral 240 / 240 0 / 0 240 / 240 Output: Urine 1400 / 1400 600 / 600 Other: Meal Breakfast Percent of Meal Consumed 100% Stool Size Small Stool Consistency soft Stool Color Brown # Bowel Movements 1 Weight 103 kg Blood Glucose* 181 210 Patient Weight 12/13/16 23:59 Weight 103 kg - General physical appearance well developed, well nourished, no distress - Eyes normal ocular movement - Neck Neck exam: trachea midline - Respiratory clear to auscultation - Cardiovascular Cardiovascular exam: Present: RRR - Abdomen Abdomen: Present: bowel sounds present, soft, non tender - Rectum other (perianal abscess - vastly improved. Decreased edema and erythema) - Neurologic CN 2-12 grossly intact - Psychiatric oriented to time, oriented to person, oriented to place - Labs 12/13/16 04:33 12/13/16 04:33 Diabetes panel 12/13/16 Range/Units 04:33 Sodium 138 (136-145) mEq/L Potassium 3.7 (3.5-4.5) mEq/L Chloride 104 (98-109) mEq/L Carbon Dioxide 27 (19-29) mEq/L BUN 8 (7-20) mg/dL Creatinine 0.69 (0.57-1.11) mg/dL Glucose 227 H (70-99) mg/dL Calcium 9.0 (8.6-10.8) mg/dL Calcium panel 12/13/16 Range/Units 04:33 Calcium 9.0 (8.6-10.8) mg/dL Pituitary panel 12/13/16 Range/Units 04:33 Sodium 138 (136-145) mEq/L Potassium 3.7 (3.5-4.5) mEq/L Chloride 104 (98-109) mEq/L Carbon Dioxide 27 (19-29) mEq/L BUN 8 (7-20) mg/dL Creatinine 0.69 (0.57-1.11) mg/dL Glucose 227 H (70-99) mg/dL Calcium 9.0 (8.6-10.8) mg/dL Adrenal panel 12/13/16 Range/Units 04:33 Sodium 138 (136-145) mEq/L Potassium 3.7 (3.5-4.5) mEq/L Chloride 104 (98-109) mEq/L Carbon Dioxide 27 (19-29) mEq/L BUN 8 (7-20) mg/dL Creatinine 0.69 (0.57-1.11) mg/dL Glucose 227 H (70-99) mg/dL Calcium 9.0 (8.6-10.8) mg/dL Consult Discharge Plan - Plan Instructions: Cellulitis (DC) Additional Instructions: Follow-up with surgery in 1-2 weeks Referrals: Aiyana Garay MD [Primary Care Provider] - 01/01/17 2:00 pm Vicente Tolbert MD [Partnered Physician] - 12/25/16 10:30 am Prescriptions: Clindamycin [Cleocin] 450 mg PO Q6HR #132 capsule Lactobacillus [Culturelle] 2 each PO DAILY #28 cap.sprink Lidocaine 4% CRM (LMX) [Lmx 4] 1 gm TP TID #1 cream - Attending Attestation I examined this patient and my medical decision-making was reviewed with the MEAT PASSER/PA/Advanced Practice Nurse/Resident Physician. I agree with the documented findings, disposition and treatment plan as described except to the extent set forth below. I agree with the above assessment and plan.
[2016-12-13] MEDS ORDERED: Acetaminophen/Butalbital/CaffeineTABLET PO PRN (13:35)
--- NOTE | 2016-12-13 13:40 | Discharge Summary ---
Date of Encounter: 12/13/16 Time of Encounter: 11:00 - Discharge Diagnosis (1) Perianal abscess Priority: Primary Status: Acute (2) Cellulitis of gluteal region Priority: Secondary Status: Acute (3) Diabetes Priority: Secondary Status: Acute Qualifiers: Diabetes mellitus type: type 2 Diabetes mellitus complication status: with hyperglycemia Diabetes mellitus extermination inspector insulin use: unspecified extermination inspector insulin use status Qualified Code(s): E11.65 - Type 2 diabetes mellitus with hyperglycemia (4) Essential hypertension Priority: Secondary Status: Acute (5) Obesity (BMI 30.0-34.9) Priority: Secondary Status: Acute - Discharge Medications Prescriptions: Clindamycin [Cleocin] 450 mg PO Q6HR #132 capsule Lactobacillus [Culturelle] 2 each PO DAILY #28 cap.sprink Lidocaine 4% CRM (LMX) [Lmx 4] 1 gm TP TID #1 cream Home Medications: Aspirin [Lo-Dose Aspirin EC] 81 mg PO DAILY 12/08/16 [History] Canagliflozin [Invokana] 300 mg PO DAILY 12/08/16 [History] Docusate [Colace] 100 mg PO DAILY 12/08/16 [History] Ferrous Sulfate [Iron] 325 mg PO BID 12/08/16 [History] Furosemide [Lasix] 20 mg PO DAILY 12/08/16 [History] Gemfibrozil [Lopid] 600 mg PO BIDWM 12/08/16 [History] Glimepiride [Amaryl] 4 mg PO BID 12/08/16 [History] HydrOXYzine Pamoate [Vistaril] 10 mg PO BID PRN 12/08/16 [History] Levothyroxine [Synthroid] 50 mcg PO DAILY 12/08/16 [History] Lisinopril [Zestril] 10 mg PO DAILY 12/08/16 [History] Loratadine [Allergy Relief] 10 mg PO DAILY 12/08/16 [History] Meloxicam 15 mg PO DAILY 12/08/16 [History] Metformin HCl [Fortamet] 1,000 mg PO BID 12/08/16 [History] Metoprolol [Lopressor] 25 mg PO BID 12/08/16 [History] Trazodone HCl 100 mg PO QPM 12/08/16 [History] Escitalopram [Lexapro] 20 mg PO DAILY 12/10/16 [History] HYDROcodone/Acet 10/325 mg [[place] 10-325 mg] 1 tab PO TID 12/10/16 [History] Clindamycin [Cleocin] 450 mg PO Q6HR #132 capsule 12/13/16 [Rx] Lactobacillus [Culturelle] 2 each PO DAILY #28 cap.sprink 12/13/16 [Rx] Lidocaine 4% CRM (LMX) [Lmx 4] 1 gm TP TID #1 cream 12/13/16 [Rx] Allergies/Adverse Reactions: Allergies Penicillins Adverse Reaction (Verified 12/08/16 00:40) Hives sulfamethoxazole [From Bactrim] Adverse Reaction (Verified 12/08/16 00:40) See Comments terbinafine [From Lamisil] Adverse Reaction (Verified 12/08/16 00:40) Anaphylaxis trimethoprim [From Bactrim] Adverse Reaction (Verified 12/08/16 00:40) See Comments Date of admission: 12/10/16 03:27 Primary care physician: Aiyana Garay MD Consults: 12/10/16 10:55 Consult to Surgery [CONS] Routine Consulting Provider: Vicente Tolbert Reason for Consult: calrey anal abscess Call Completed: Yes Discharging clinician: Gurinder Nagel Anticipated date of discharge: 12/13/16 - Patient Status Disposition: Home Health Service Condition: Fair Functional capacity at discharge: independent ambulation Overall status at discharge: patient is progressing back to baseline - Discharge Instructions Instructions: Cellulitis (DC) Follow Up With: Aiyana Garay MD [Primary Care Provider] - 01/01/17 2:00 pm Additional Instructions: Follow-up with surgery in 1-2 weeks - Diet and Activity Activity: increase activity as tolerated Diet: diabetic diet, low fat, low cholesterol, low salt diet Hospital course: Ms. Gibson is a 56 year old female with history of type 2 diabetes mellitus, hypertension, obesity, chronic pain who was admitted here after being found to have an abscess and cellulitis involving the gluteal region. She was evaluated by surgery and was found to have a left perianal region abscess. She reports treated for this with incision and drainage I will IV antibiotics. Since then her symptoms have improved and her cellulitis is subsiding. She continues to require wound packing and antibiotics. From a surgical standpoint, patient is stable for discharge at this time and will follow up with surgery as outpatient. Home health will be arranged for wound dressing. She will also complete treatment course with oral antibiotics. Her wound culture was positive for Streptococcus pneumonia and tetanus. Patient is allergic to penicillins. As such she will be placed on clindamycin 450 mg by mouth 4 times daily to complete a 14 day treatment course. - Time Spent with Patient Total time spent providing and/or coordinating discharge services: Greater than 30 minutes (35 min) - Constitutional Vitals: Temp Pulse Resp BP Pulse Ox 98.8 F 82 16 120/72 95 12/13/16 11:39 12/13/16 11:39 12/13/16 11:39 12/13/16 11:39 12/13/16 11:39 General appearance: Present: cooperative, mild distress, A&O X 3, pleasant, obese, answers questions appropriately - Respiratory Respiratory exam: Present: CTAB. Absent: accessory muscle use, rales, rhonchi, wheezes - Cardiovascular Cardiovascular exam: Present: RRR, +S1, +S2. Absent: diastolic murmur, gallop, rubs, systolic murmur - GI/Abdominal GI/Abdominal exam: Present: normal bowel sounds, soft, no peritoneal signs. Absent: distended, tenderness - Extremities Exam Extremities exam: Present: warm, radial pulses palpable and symetrical. Absent : calf tenderness, cyanotic, pedal edema - Skin Skin exam: Present: dry, erythema (Improving in the gluteal region.), intact - Attending Attestation This document has been at least partially created by [employer]imote recognition technology by Dr. Nagel. Errors in grammar, wording or other phrases may exist. If errors are found after the documentation is signed, they will be addressed individually in the addendum section of this document when appropriate.
--- NOTE | 2016-12-13 13:49 | Physician Discharge Referral ---
Home Health/Hosp Referral Info Transfer to: Home Health Provider in Charge Post Discharge: PCP - Diagnosis (1) Perianal abscess Priority: Primary Status: Acute (2) Cellulitis of gluteal region Priority: Secondary Status: Acute (3) Diabetes Priority: Secondary Status: Acute (4) Essential hypertension Priority: Secondary Status: Acute (5) Obesity (BMI 30.0-34.9) Priority: Secondary Status: Acute - Respiratory Orders Smoking Cessation: Smoking cessation has been advised. For more information, call the [place] Tobacco Quit Line at 7-687-GYGS-NOW. - Diet/Nutrition Diet/Nutrition Orders: Cardiac (In diabetic), No Concentrated Sweets - Activity Activity Orders: Up ad marlin - Services Needed Following services are medically necessary services: [facility] Orders: Dressing changes with daily packing with iodoform gauze for 7 days - Transfer Medications Prescriptions: Clindamycin [Cleocin] 450 mg PO Q6HR #132 capsule Lactobacillus [Culturelle] 2 each PO DAILY #28 cap.sprink Lidocaine 4% CRM (LMX) [Lmx 4] 1 gm TP TID #1 cream Home Medications: Aspirin [Lo-Dose Aspirin EC] 81 mg PO DAILY 12/08/16 [History] Canagliflozin [Invokana] 300 mg PO DAILY 12/08/16 [History] Docusate [Colace] 100 mg PO DAILY 12/08/16 [History] Ferrous Sulfate [Iron] 325 mg PO BID 12/08/16 [History] Furosemide [Lasix] 20 mg PO DAILY 12/08/16 [History] Gemfibrozil [Lopid] 600 mg PO BIDWM 12/08/16 [History] Glimepiride [Amaryl] 4 mg PO BID 12/08/16 [History] HydrOXYzine Pamoate [Vistaril] 10 mg PO BID PRN 12/08/16 [History] Levothyroxine [Synthroid] 50 mcg PO DAILY 12/08/16 [History] Lisinopril [Zestril] 10 mg PO DAILY 12/08/16 [History] Loratadine [Allergy Relief] 10 mg PO DAILY 12/08/16 [History] Meloxicam 15 mg PO DAILY 12/08/16 [History] Metformin HCl [Fortamet] 1,000 mg PO BID 12/08/16 [History] Metoprolol [Lopressor] 25 mg PO BID 12/08/16 [History] Trazodone HCl 100 mg PO QPM 12/08/16 [History] Escitalopram [Lexapro] 20 mg PO DAILY 12/10/16 [History] HYDROcodone/Acet 10/325 mg [[place] 10-325 mg] 1 tab PO TID 12/10/16 [History] Clindamycin [Cleocin] 450 mg PO Q6HR #132 capsule 12/13/16 [Rx] Lactobacillus [Culturelle] 2 each PO DAILY #28 cap.sprink 12/13/16 [Rx] Lidocaine 4% CRM (LMX) [Lmx 4] 1 gm TP TID #1 cream 12/13/16 [Rx] Allergies/Adverse Reactions: Allergies Penicillins Adverse Reaction (Verified 12/08/16 00:40) Hives sulfamethoxazole [From Bactrim] Adverse Reaction (Verified 12/08/16 00:40) See Comments terbinafine [From Lamisil] Adverse Reaction (Verified 12/08/16 00:40) Anaphylaxis trimethoprim [From Bactrim] Adverse Reaction (Verified 12/08/16 00:40) See Comments Certification: Further, I certify that my clinical findings support that this patient is homebound (i.e. absences from home require considerable and taxing effort and are for medical reasons or nondenominational services or infrequently or short duration when for other reasons) because: Homebound Reason: Post-surgery restriction and or conditions limit ability to leave home (Patient requires local wound care that she would not be able to perform on her own) Attestation: My signature below is to certify that this patient is under my care and that I, or nurse practitioner, or a physician's nursing home assistant administrator working with me, has a face-to -face encounter with this patient.
[2016-12-13 15:05] VITALS: BP 135/82
[2016-12-13] MEDS ORDERED: Aminoglycoside Consult 1 EACH MC ONE (17:02)
== END 2016-12-13 17:03 | disposition home health service (06) | DRG 226 ==
LOC: 3ANU 20:44 → EMEROO 20:44 → 3ANU 12-10 00:14 → SUATTDRO 12-10 03:27
PROVIDERS: ADMIT Internal Medicine; ATTEND Internal Medicine